=== PATIENT | female | born 1955 | race Caucasian/White ===

== ENCOUNTER 2016-09-12 08:00 | Outpatient (CLI) | payer MEDICAID | END 2016-09-12 08:01 | disposition home or self-care (01) | DX: N39.0 Urinary tract infection, site not specified (principal) ==

== ENCOUNTER 2016-12-19 08:51 | Outpatient (CLI) | payer MEDICAID | END 2016-12-19 08:52 | disposition home or self-care (01) | DX: E11.9 Type 2 diabetes mellitus without complications (principal) ==

== ENCOUNTER 2016-12-30 12:17 | Emergency (ER) | payer MEDICAID ==
[2016-12-30 12:23] VITALS: BP 140/84
== END 2016-12-30 13:45 | disposition left against medical advice (07) ==
LOC: ED 12:17
DX: Z53.21 Procedure and treatment not carried out due to patient leaving prior to being seen by health care provider (principal)

== ENCOUNTER 2017-02-07 21:27 | Emergency (ER) | payer MEDICAID ==
[2017-02-07 21:46] VITALS: BP 191/85
--- NOTE | 2017-02-07 22:29 | ED Physician Documentation ---
PD HPI HEADACHE - Stated complaint Stated Complaint: HBP - Chief complaint Chief Complaint: General - History obtained from History obtained from: Patient - History of Present Illness Timing - onset: How many days ago (BP has been high the past 4-5 days. Having mild pressure feeling in head today.) Timing - onset during: Light activity Timing - duration: Days (4-5) Timing - details: Gradual onset, Still present, Waxing and waning Worst headache ever?: No: Worst headache ever? Location: Front Quality: Throbbing Associated symptoms: No: Fever, Stiff neck, Nausea, Vomiting, Eye pain, Vision changes Recently seen: Not recently seen (last seen in clinic PMD for general care and BP was low at the time, so had Lisinopril 40 mg stopped. Other meds the same. That was 2 months ago and BP good for awhile (140-150 systolic, now high the past 4-5 days.) Review of Systems Eyes: denies: Loss of vision, Decreased vision Nose: denies: Rhinorrhea / runny nose, Congestion Throat: denies: Sore throat Cardiac: denies: Chest pain / pressure, Palpitations, Pedal edema, Calf pain Respiratory: denies: Cough GI: denies: Nausea, Vomiting Neurologic: denies: Generalized weakness, Focal weakness, Numbness PD PAST MEDICAL HISTORY - Past Medical History Past Medical History: Yes Cardiovascular: Hypertension Respiratory: COPD, Pneumonia Neuro: None Endocrine/Autoimmune: Type 2 diabetes GI: GERD, Cirrhosis 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 : Kidney stones HEENT: Other Psych: Depression, Anxiety Musculoskeletal: Osteoarthritis Derm: Other - Past Surgical History Past Surgical History: Yes General: Gastric surgery, EGD /AIR TRAFFIC CONTROL SPECIALIST: Tubal ligation HEENT: Cataracts - Present Medications Home Medications: Ambulatory Orders Medication Instructions Recorded Confirmed FLUoxetine [PROzac] 80 mg PO DAILY 05/15/13 02/07/17 Gabapentin [Gralise] 900 mg PO TID 05/15/13 02/07/17 Metformin HCl [Metformin HCl ER] 2,000 mg PO BID 05/15/13 02/07/17 buPROPion [Wellbutrin Xl] 300 mg PO DAILY 05/15/13 02/07/17 Albuterol 2.5 mg INH Q4H PRN 07/27/13 02/07/17 Guanfacine HCl [Tenex] 2 mg ORAL DAILY 03/31/14 02/07/17 Lisinopril 20 mg PO DAILY #30 tablet 02/07/17 Propranolol [Inderal] 10 mg PO BID 02/07/17 02/07/17 - Allergies Allergies/Adverse Reactions: Allergies Allergy/AdvReac Type Severity Reaction Status Date / Time latex AdvReac Intermediate Hives Verified 12/12/14 11:22 - Social History Does the pt smoke?: No Smoking Status: Never smoker Does the pt drink ETOH?: No Does the pt have substance abuse?: No - Immunizations Immunizations are current?: Yes - POLST Patient has POLST: No PD ED PE NORMAL - Vitals Vital signs reviewed: Yes - General General: Alert and oriented X 3, No acute distress, Well developed/nourished - HEENT HEENT: Moist mucous membranes, Pharynx benign - Neck Neck: Supple, no meningeal sign, No adenopathy - Cardiac Cardiac: RRR, No murmur - Respiratory Respiratory: Clear bilaterally - Derm Derm: Normal color, Warm and dry - Extremities Extremities: No tenderness to palpate, Normal ROM s pain, No edema, No calf tenderness / cord - Neuro Neuro: Alert and oriented X 3, breaker table worker 2-12 intact, No motor deficit, No sensory deficit, Normal speech, Other Results - Vitals Vitals: Oxygen O2 Source Room air PD MEDICAL DECISION MAKING - ED course Complexity details: considered differential (she had been on Lisinipril 40 mg and was taken off due to BP okay/low. Now is high, so can resume it at medium dose. ), d/w patient Departure - Departure Disposition: 01 Home, Self Care Clinical Impression: Mild headache Hypertension Qualifiers: Hypertension type: unspecified secondary hypertension Qualified Code(s): I15.9 - Secondary hypertension, unspecified Condition: Stable Record reviewed to determine appropriate education?: Yes Instructions: ED HTN Established Follow-Up: Pasquale Abreu MD [Primary Care Provider] - Prescriptions: Lisinopril 20 mg PO DAILY #30 tablet Comments: Adequate hydration. Resume lisinopril at medium dose from what you had been on previously (take 20 mg daily). Ibuprofen 200-400 mg twice daily or Aleve 220- 440 mg (1-2 tabs) twice daily for headaches short term. See how your blood pressure does over the next several days. Follow up next week with PMD as planned. Continue other medications as usual. Discharge Date/Time: 02/07/17 22:59
[2017-02-07] MEDS ORDERED: diazePAM 5 MG TABLET PO STA (22:49)
[2017-02-07] MEDS ORDERED: LISINOPRIL 5 MG TABLET PO STA (22:49)
[2017-02-07] MEDS ORDERED: NAPROXEN 250 MG TABLET PO STA (22:50)
[2017-02-07] MEDS ORDERED: diazePAM 5 MG TABLET PO ONE (22:53)
[2017-02-07] MEDS ORDERED: NAPROXEN 250 MG TABLET PO ONE (22:53)
[2017-02-07] MEDS ORDERED: LISINOPRIL 5 MG TABLET ONE (22:53)
== END 2017-02-07 22:59 | disposition home or self-care (01) ==
LOC: ED 21:27
DX: I10 Essential (primary) hypertension (principal); E11.9 Type 2 diabetes mellitus without complications; Z79.84 Long term (current) use of oral hypoglycemic drugs
CPT/HCPCS: 99283; A9270

== ENCOUNTER 2017-02-14 12:48 | Emergency (ER) | payer MEDICAID ==
--- NOTE | 2017-02-14 13:18 | ED Physician Documentation ---
PD HPI ABD PAIN - Stated complaint Stated Complaint: ABD PAIN - Chief complaint Chief Complaint: Abd Pain - History obtained from History obtained from: Patient - History of Present Illness Timing - onset: How many days ago (2) Timing - duration: Days (2) Timing - details: Abrupt onset, Still present (worse the past few hours), Waxing and waning Quality: Aching, Sharp, Pain Location: LLQ Radiation: Left flank Improved by: No: Eating, Position Worsened by: No: Eating, Moving, Breathing, Palpation Associated symptoms: Nausea, Hematuria. No: Fever, Vomiting, Diarrhea, Dysuria , Near syncope / syncope, Vaginal bleeding, Vaginal dc Similar symptoms before: Diagnosis (kidney stones, with large staghorn one left currently, due to see Dr. Melara, Urology in [facility] on the 27 of February about lithotripsy or surgery.) Recently seen: Not recently seen Review of Systems Constitutional: denies: Fever, Chills Nose: denies: Rhinorrhea / runny nose, Congestion Throat: denies: Sore throat Cardiac: denies: Chest pain / pressure Respiratory: denies: Dyspnea, Cough, Wheezing GI: reports: Abdominal Pain, Nausea. denies: Vomiting, Diarrhea : reports: Vaginal bleeding. 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 : Kidney stones HEENT: Other Psych: Depression, Anxiety Musculoskeletal: Osteoarthritis Derm: Other - Past Surgical History Past Surgical History: Yes General: Gastric surgery, EGD /EPOXY FABRICATION SUPERVISOR: Tubal ligation HEENT: Cataracts - Present Medications Home Medications: Ambulatory Orders Medication Instructions Recorded Confirmed FLUoxetine [PROzac] 80 mg PO DAILY 05/15/13 02/14/17 Gabapentin [Gralise] 900 mg PO TID 05/15/13 02/14/17 Metformin HCl [Metformin HCl ER] 2,000 mg PO BID 05/15/13 02/14/17 buPROPion [Wellbutrin Xl] 300 mg PO DAILY 05/15/13 02/14/17 Albuterol 2.5 mg INH Q4H PRN 07/27/13 02/14/17 Guanfacine HCl [Tenex] 2 mg ORAL DAILY 03/31/14 02/14/17 Lisinopril 20 mg PO DAILY #30 tablet 02/07/17 02/14/17 Propranolol [Inderal] 10 mg PO BID 02/07/17 02/14/17 Naproxen 375 mg PO BID #20 tablet 02/14/17 Ondansetron Odt [Zofran] 4 mg TL Q6H PRN #15 tablet 02/14/17 oxyCODONE [Roxicodone] 5 mg PO Q4-6H PRN #30 tablet 02/14/17 - Allergies Allergies/Adverse Reactions: Allergies Allergy/AdvReac Type Severity Reaction Status Date / Time latex AdvReac Intermediate Hives Verified 12/12/14 11:22 - Social History Does the pt smoke?: No Smoking Status: Former smoker Does the pt drink ETOH?: No Does the pt have substance abuse?: No - Immunizations Immunizations are current?: Yes - POLST Patient has POLST: No PD ED PE NORMAL - Vitals Vital signs reviewed: Yes - General General: Alert and oriented X 3, Well developed/nourished, Other (appears in significant pain) - Cardiac Cardiac: RRR, No murmur - Respiratory Respiratory: Clear bilaterally - Abdomen Abdomen: Normal bowel sounds, Soft, Non distended, No organomegaly, Other - Female Female : Deferred - Rectal Rectal: Deferred - Back Back: No spinal TTP, Other (left CVA tender) - Derm Derm: Normal color, Warm and dry, No rash - Neuro Neuro: Alert and oriented X 3, No motor deficit, No sensory deficit, Normal speech Results - Vitals Vitals: Oxygen O2 Source Room air - Labs Labs: Laboratory Tests 02/14/17 02/14/17 13:27 13:27 WBC 7.8 RBC 4.34 Hgb 13.4 Hct 38.6 MCV 88.9 MCH 30.9 MCHC 34.8 RDW 13.6 Plt Count 171 MPV 8.1 Neut # 5.3 Lymph # 1.8 [place] # 0.6 Eos # 0.1 Baso # 0.0 Absolute Nucleated RBC 0.00 Nucleated RBCs 0.0 Sodium 139 Potassium 4.3 Chloride 99 L Carbon Dioxide 31 Anion Gap 9.0 BUN 14 Creatinine 0.7 Estimated GFR (MDRD) 85 L Glucose 94 Calcium 9.8 Total Bilirubin 0.6 AST 24 ALT 27 Alkaline Phosphatase 63 Total Protein 7.9 Albumin 4.3 Globulin 3.6 Albumin/Globulin Ratio 1.2 Lipase 35 PD MEDICAL DECISION MAKING - ED course Complexity details: reviewed results, re-evaluated patient (much more comfortable with meds), considered differential, d/w patient, d/w customer care consultant ( [place], Urology) Departure - Departure Disposition: 01 Home, Self Care Clinical Impression: Ureterolithiasis, Left sided abdominal pain Condition: Stable Record reviewed to determine appropriate education?: Yes Instructions: ED Stone Renal W Colic Follow-Up: Pasquale Abreu MD [Primary Care Provider] - Shantell Melara MD [Physician No Access] - Prescriptions: Naproxen 375 mg PO BID #20 tablet oxyCODONE [Roxicodone] 5 mg PO Q4-6H PRN #30 tablet PRN Reason: Pain Ondansetron Odt [Zofran] 4 mg TL Q6H PRN #15 tablet PRN Reason: Nausea / Vomiting Comments: Adequate fluids. Naproxen lower dose twice daily for the next several days. Zofran as needed for nausea. Oxycodone 1-2 every 4-6 hours as needed for pains. Call Dr. Melara's office today for follow up appt. They have not called back as yet, but I assume they will be wanting to see you in office in the next day or two. Discharge Date/Time: 02/14/17 15:11
[2017-02-14] MEDS ORDERED: ONDANSETRON 4 MG/2 ML VIAL IVP STA (13:23)
[2017-02-14] MEDS ORDERED: SODIUM CHLORIDE 0.9% 1,000 ML IV ONE (13:23)
[2017-02-14] MEDS ORDERED: HYDROmorphone 1 MG/ML SYRINGE IVP STA ×2 (13:23→14:23)
[2017-02-14] MEDS ORDERED: KETOROLAC 60 MG/2 ML VIAL IVP STA (13:23)
[2017-02-14] MEDS ORDERED: ONDANSETRON 4 MG/2 ML VIAL ONE (13:29)
[2017-02-14] MEDS ORDERED: KETOROLAC 30 MG/ML VIAL ONE (13:29)
[2017-02-14] MEDS ORDERED: HYDROmorphone 1 MG/ML SYRINGE ONE ×2 (13:29→14:27)
[2017-02-14 13:47] LABS: BASOPHILS % (AUTO) 0.5 %; EOSINOPHILS # (AUTO) 0.1 10^3/uL (0.0-0.7); EOSINOPHILS % (AUTO) 1.4 %; HCT - HEMATOCRIT 38.6 % (37.0-47.0); HGB - HEMOGLOBIN 13.4 g/dL (12.0-16.0); LYMPHOCYTES # (AUTO) 1.8 10^3/uL (1.5-3.5); LYMPHOCYTES % (AUTO) 22.6 %; MEAN CORPUSCULAR HEMOGLOBIN 30.9 pg (27.0-31.0); MEAN CORPUSCULAR HGB CONC 34.8 g/dL (32.0-36.0); MEAN CORPUSCULAR VOLUME 88.9 fL (81.0-99.0); MEAN PLATELET VOLUME 8.1 fL (7.9-10.8); MONOCYTES # (AUTO) 0.6 10^3/uL (0.0-1.0); MONOCYTES % (AUTO) 8.2 %; NEUTROPHILS # (AUTO) 5.3 10^3/uL (1.5-6.6); NEUTROPHILS % (AUTO) 67.3 %; RED BLOOD COUNT 4.34 10^6/uL (4.20-5.40); RED CELL DISTRIBUTION WIDTH 13.6 % (12.0-15.0); UNCORRECTED WHITE BLOOD COUNT 7.8 x10^3/uL; WHITE BLOOD COUNT 7.8 x10^3/uL (4.8-10.8)
[2017-02-14 14:04] LABS: ALBUMIN/GLOBULIN RATIO 1.2 (1.0-2.2); BILIRUBIN,TOTAL 0.6 mg/dL (0.2-1.0); CALCIUM 9.8 mg/dL (8.5-10.3); CREATININE 0.7 mg/dL (0.4-1.0); POTASSIUM 4.3 mmol/L (3.5-5.0); TOTAL PROTEIN 7.9 g/dL (6.7-8.2)
--- NOTE | 2017-02-14 14:21 | CT Preliminary Report ---
Exam: CT KUB IMPRESSION: 1. One of the 2 previously demonstrated staghorn stones in the lower pole of the left kidney has drop ped down to the left ureter and lodged at L4-L5 level measuring 12 mm in length, 7 mm in diameter cau sing moderate left hydronephrosis and hydroureter and mild perinephric fat stranding. 2. The other staghorn stone is still in the lower pole measuring 19 mm in length and 10 mm in diamete r. 3. A small 1.2 cm low-attenuation focus in the upper pole of the right kidney consistent with a renal cyst, showing no significant interval change. 4. Cirrhotic liver. [facility] SITE ID: [id number]
--- NOTE | 2017-02-14 14:24 | CT Report ---
EXAM: CT ABDOMEN AND PELVIS (CT KUB) EXAM DATE: 02/14/2017 01:50 PM. CLINICAL HISTORY: Left abd/flank pain for 2 days; h/o stones. COMPARISONS: CT ABDOMEN AND PELVIS WITHOUT CONTRAST 02/07/2015. TECHNIQUE: Routine axial helical CT imaging was performed through the abdomen and pelvis without IV c ontrast. Reconstructions: Coronal and sagittal. In accordance with CT protocol optimization, one or more of the following dose reduction techniques w ere utilized for this exam: automated exposure control, adjustment of mA and/or KV based on patient s ize, or use of iterative reconstructive technique. FINDINGS: Lung Bases: Unremarkable. Right Kidney/Ureter: No opaque stones, hydronephrosis, or hydroureter. No perinephric fat stranding. A small 1.2 cm low-attenuation focus in the upper pole consistent with a renal cyst, showing no signi ficant interval change. Left Kidney/Ureter: One of the 2 previously demonstrated staghorn stones in the lower pole of the lef t kidney has dropped down to the left ureter and lodged at L4-L5 level measuring 12 mm in length, 7 m m in diameter causing moderate left hydronephrosis and hydroureter. The other staghorn stone is still in the lower pole measuring 19 mm in length and 10 mm in diameter. Mild perinephric fat stranding. Other Solid Organs: Cirrhotic liver with nodular contour. Noncontrast images of the other solid organ s are grossly unremarkable. Gallbladder/Bile Ducts: Unremarkable. Peritoneal Cavity: No free fluid, free air or rufus adenopathy. Bowel is grossly unremarkable. The ap pendix is small and normal. No diverticulitis or colitis. Pelvic Organs: No bladder stones or wall thickening. Noncontrast images of the visualized pelvic orga ns are unremarkable. Vasculature: Unremarkable. Other: None. IMPRESSION: 1. One of the 2 previously demonstrated staghorn stones in the lower pole of the left kidney has drop ped down to the left ureter and lodged at L4-L5 level measuring 12 mm in length, 7 mm in diameter cau sing moderate left hydronephrosis and hydroureter and mild perinephric fat stranding. 2. The other staghorn stone is still in the lower pole measuring 19 mm in length and 10 mm in diamete r. 3. A small 1.2 cm low-attenuation focus in the upper pole of the right kidney consistent with a renal cyst, showing no significant interval change. 4. Cirrhotic liver. [facility] Referring Provider Line: [phone] SITE ID: [id number]
[2017-02-14 14:33] VITALS: BP 181/91
== END 2017-02-14 15:11 | disposition home or self-care (01) ==
LOC: ED 12:48
DX: N20.1 Calculus of ureter (principal); I10 Essential (primary) hypertension; E11.9 Type 2 diabetes mellitus without complications; Z87.891 Personal history of nicotine dependence
CPT/HCPCS: 36415; 74176; 80053; 83690; 85025; 96374; 96375; 96376; 99283; 99284; J1170

== ENCOUNTER 2017-02-27 10:48 | Inpatient (IN) | payer MEDICAID ==
[2017-02-27 11:52] LABS: BASOPHILS # (AUTO) 0.1 10^3/uL (0.0-0.1); EOSINOPHILS # (AUTO) 0.2 10^3/uL (0.0-0.7); EOSINOPHILS % (AUTO) 2.2 %; HCT - HEMATOCRIT 31.7 % (37.0-47.0); HGB - HEMOGLOBIN 10.8 g/dL (12.0-16.0); LYMPHOCYTES # (AUTO) 1.9 10^3/uL (1.5-3.5); LYMPHOCYTES % (AUTO) 22.2 %; MEAN CORPUSCULAR HEMOGLOBIN 29.6 pg (27.0-31.0); MEAN CORPUSCULAR HGB CONC 34.1 g/dL (32.0-36.0); MEAN CORPUSCULAR VOLUME 86.9 fL (81.0-99.0); MONOCYTES # (AUTO) 0.4 10^3/uL (0.0-1.0); MONOCYTES % (AUTO) 4.3 %; NEUTROPHILS % (AUTO) 70.3 %; RED BLOOD COUNT 3.65 10^6/uL (4.20-5.40); RED CELL DISTRIBUTION WIDTH 13.2 % (12.0-15.0); UNCORRECTED WHITE BLOOD COUNT 8.5 x10^3/uL; WHITE BLOOD COUNT 8.5 x10^3/uL (4.8-10.8)
[2017-02-27 11:59] LABS: INR 1.1 (0.8-1.2); PT - PROTHROMBIN TIME 12.5 secs (9.9-12.6)
[2017-02-27 12:06] LABS: ALBUMIN/GLOBULIN RATIO 0.9 (1.0-2.2); BILIRUBIN,TOTAL 0.3 mg/dL (0.2-1.0); CALCIUM 9.4 mg/dL (8.5-10.3); CREATININE 0.8 mg/dL (0.4-1.0); POTASSIUM 3.9 mmol/L (3.5-5.0); TOTAL PROTEIN 7.2 g/dL (6.7-8.2)
[2017-02-27 12:14] LABS: PARTIAL THROMBOPLASTIN TIME 31.2 secs (24.9-33.3)
[2017-02-27] MEDS ORDERED: FAMOTIDINE 20 MG/50 ML 50 ML IV ONE ×2 (12:40→12:56)
--- NOTE | 2017-02-27 12:48 | ED Physician Documentation ---
History of Present Illness - Stated complaint Stated Complaint: BLOOD IN STOOL - Chief complaint Chief Complaint: Abd Pain - Additonal information Additional information: hx from pt 61 female pmhx HTN COPD DM and kidney stones seen in our ED 02/14 for renal colic, had a staghorn L ureteral, txed with oxycodone naproxen and zofran then saw urology and had a stent placed has had abd pain - but presumed 2/2 stone and then stent 2 days of maroon colored stools, no CP no SOA not faint, no vomiting blood Review of Systems Constitutional: denies: Fever, Chills Throat: denies: Sore throat Cardiac: denies: Chest pain / pressure GI: reports: Abdominal Pain, Bloody / black stool. 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 : Kidney stones HEENT: Other Psych: Depression, Anxiety Musculoskeletal: Osteoarthritis Derm: Other - Past Surgical History Past Surgical History: Yes General: Gastric surgery, EGD /WOOD TURNER: Tubal ligation HEENT: Cataracts - Present Medications Home Medications: Ambulatory Orders Medication Instructions Recorded Confirmed FLUoxetine [PROzac] 80 mg PO DAILY 05/15/13 02/14/17 Gabapentin [Gralise] 900 mg PO TID 05/15/13 02/14/17 Metformin HCl [Metformin HCl ER] 2,000 mg PO BID 05/15/13 02/14/17 buPROPion [Wellbutrin Xl] 300 mg PO DAILY 05/15/13 02/14/17 Albuterol 2.5 mg INH Q4H PRN 07/27/13 02/14/17 Guanfacine HCl [Tenex] 2 mg ORAL DAILY 03/31/14 02/14/17 Lisinopril 20 mg PO DAILY #30 tablet 02/07/17 02/14/17 Propranolol [Inderal] 10 mg PO BID 02/07/17 02/14/17 Naproxen 375 mg PO BID #20 tablet 02/14/17 Ondansetron Odt [Zofran] 4 mg TL Q6H PRN #15 tablet 02/14/17 oxyCODONE [Roxicodone] 5 mg PO Q4-6H PRN #30 tablet 02/14/17 - Allergies Allergies/Adverse Reactions: Allergies Allergy/AdvReac Type Severity Reaction Status Date / Time latex AdvReac Intermediate Hives Verified 12/12/14 11:22 - Social History Does the pt smoke?: No Smoking Status: Former smoker Does the pt drink ETOH?: No Does the pt have substance abuse?: No - Immunizations Immunizations are current?: Yes - POLST Patient has POLST: No PD ED PE NORMAL - Vitals Vital signs reviewed: Yes - General General: Alert and oriented X 3 - HEENT HEENT: PERRL - Neck Neck: Supple, no meningeal sign - Cardiac Cardiac: RRR - Respiratory Respiratory: No respiratory distress, Clear bilaterally - Abdomen Abdomen: Soft, Other (mild diffuse TTP) - Rectal Rectal: Other (no mass fissure or hemorrhoiuds, dark maroon strongly heme + stool) - Derm Derm: Other (pale) Results - Vitals Vitals: Vital Signs - 24 hr 02/27/17 02/27/17 10:54 13:00 Temperature 36.6 C Heart Rate 86 63 Respiratory 18 20 Rate Blood Pressure 133/62 H 151/86 H O2 Saturation 98 100 Oxygen O2 Source Room air - Labs Labs: Laboratory Tests 02/27/17 02/27/17 02/27/17 11:44 11:44 11:44 WBC 8.5 RBC 3.65 L Hgb 10.8 L Hct 31.7 L MCV 86.9 MCH 29.6 MCHC 34.1 RDW 13.2 Plt Count 286 MPV 7.0 L Neut # 6.0 Lymph # 1.9 [place] # 0.4 Eos # 0.2 Baso # 0.1 Absolute Nucleated RBC 0.00 Nucleated RBCs 0.0 PT 12.5 INR 1.1 APTT 31.2 Sodium 135 Potassium 3.9 Chloride 100 L Carbon Dioxide 21 Anion Gap 14.0 H BUN 18 Creatinine 0.8 Estimated GFR (MDRD) 73 L Glucose 170 H Calcium 9.4 Total Bilirubin 0.3 AST 31 ALT 28 Alkaline Phosphatase 79 Total Protein 7.2 Albumin 3.4 Globulin 3.8 Albumin/Globulin Ratio 0.9 L Lipase 32 PD MEDICAL DECISION MAKING - ED course ED course: hemodynamically stable, Hgb dropped from 13.4 on 02/14 to 10.8 likely 2/2 NSAIDS - gave pepcid CT 02/14 for stones also showed cirrhosis, pt states hx Hep C txed and neg tests X 3 now, had scope at [facility] 5 yr ago s varices, NN state hx gastric surgery but when questioned she states it was an EGD hospitalist will admit, i spoke to surgery re consult Departure - Departure Disposition: 66 [facility] DC/Xfer Clinical Impression: GI bleed Qualifiers: GI bleed type/associated pathology: melena Qualified Code(s): K92.1 - Melena
[2017-02-27] MEDS ORDERED: ZOLPIDEM 5 MG TABLET PO PRN (13:40)
[2017-02-27] MEDS ORDERED: ACETAMINOPHEN 325 MG TABLET PO PRN (13:40)
[2017-02-27] MEDS ORDERED: ONDANSETRON 4 MG/2 ML VIAL IVP PRN (13:40)
[2017-02-27] MEDS ORDERED: SODIUM CHLORIDE FLUSH 0.9% 10 ML SYRINGE IVP PRN (13:40)
[2017-02-27] MEDS ORDERED: ALBUTEROL NEB 2.5 MG/3 ML INH PRN (13:54)
[2017-02-27 14:39] LABS: HEMOGLOBIN A1C 0.52 g/dL
[2017-02-27] MEDS: SODIUM CHLORIDE FLUSH 0.9% 10 ML SYRINGE IVP SCH ×2 (14:58→21:56)
[2017-02-27] MEDS: SODIUM CHLORIDE 0.9% 1,000 ML IV SCH ×2 (14:58→23:54)
[2017-02-27] MEDS: GABAPENTIN 300 MG CAPSULE PO SCH ×2 (15:30→21:57)
[2017-02-27] MEDS: PANTOPRAZOLE 40 MG VIAL IVP SCH (15:30)
--- NOTE | 2017-02-27 17:45 | HISTORY & PHYSICAL EXAMINATION ---
Chief Complaint - Chief Complaint Chief Complaint: GI bleeding History of Present Illness - History Obtained From History obtained from: patient - History of Present Illness HPI Comment/Other: This is a 58-year-old female with a past medical significant history of COPD, diabetes, hypertension, history of recurrent kidney stones, status post of stent placement with nephrostomy tube, drug abuse, and HepC, who present emergence department with a chief complaint of melena. Patient state she noticed maroon as well black stool for about four days. She report because of pain of recurrent nephrolithiasis, she took Naprosyn for about 7 times, plus oxycodone and Zofran as well. She report she had history HepC, but virus is undetectable after treated by her GI physician. She report she had stage 4 liver cirrhosis but she was never told she had esophagus varices. She report she had colonoscope done about 6 years ago. She was reported it was benign. She state she never had EGD done before. She denies short of breathing, abdominal pain, chest pain, syncope, nausea, vomiting, hematemesis, hemoptysis, hematuria. Patient had HGB 13.4 at 02/14/17, today patient's HGB 10.8. Patient's vital signs and other blood workup are unremarkable at this point. Patient is admitted for GI bleeding, planed to do EGD, and will consult with surgeon. Review of Systems - Gastrointestinal Gastrointestinal: reports: Black stools - Psychiatric Psychiatric: reports: Anxiety History - Past Medical History Cardiovascular: reports: Hypertension Respiratory: reports: COPD, Pneumonia Neuro: reports: None Endocrine/Autoimmune: reports: Type 2 diabetes GI: reports: GERD, Cirrhosis CARPENTER ROUGH: reports: None : reports: Kidney stones HEENT: reports: Other Psych: reports: Depression, Anxiety Musculoskeletal: reports: Osteoarthritis Derm: reports: Other MRSA Hx?: Yes Other Past Medical History: dentures top and bottom- only wears top - Past Surgical History General: reports: Gastric surgery, EGD /CARPENTER ROUGH: reports: Tubal ligation HEENT: reports: Cataracts - POLST Patient has POLST: No Meds/Allgy - Home Medications Home Medications: Ambulatory Orders Medication Instructions Recorded Confirmed FLUoxetine [PROzac] 40 mg PO DAILY 05/15/13 02/27/17 buPROPion [Wellbutrin Xl] 300 mg PO DAILY 05/15/13 02/27/17 Guanfacine HCl [Tenex] 2 mg ORAL QPM 03/31/14 02/27/17 Propranolol [Inderal] 10 mg PO BID 02/07/17 02/27/17 Naproxen 375 mg PO BID #20 tablet 02/14/17 02/27/17 Ondansetron Odt [Zofran] 4 mg TL Q6H PRN #15 tablet 02/14/17 02/27/17 oxyCODONE [Roxicodone] 5 mg PO Q4-6H PRN #30 tablet 02/14/17 02/27/17 Albuterol Sulfate [Proair Hfa 2 puffs INH Q4H PRN 02/27/17 02/27/17 Inhaler] Gabapentin [Neurontin] 900 mg PO TID 02/27/17 02/27/17 Lisinopril [Prinivil] 10 mg PO DAILY 02/27/17 02/27/17 Metformin HCl [Glucophage] 1,000 mg PO BID 02/27/17 02/27/17 - Allergies Allergies/Adverse Reactions: Allergies Allergy/AdvReac Type Severity Reaction Status Date / Time latex AdvReac Intermediate Hives Verified 12/12/14 11:22 Exam - Vital Signs Vital Signs: Vital Signs x48h Temp Pulse Pulse Pulse Resp BP Pulse Ox 02/27/17 17:00 58 L 20 02/27/17 16:15 36.8 C 71 20 140/74 H 97 02/27/17 14:00 36.6 C 62 17 180/84 H 95 - Physical Exam General Appearance: positive: No acute distress, Alert Eyes Bilateral: positive: Normal inspection, PERRL ENT: positive: ENT inspection nml, Pharynx nml, No signs of dehydration Neck: positive: Nml inspection, Thyroid nml, No JVD, Trachea midline Respiratory: positive: Chest non-tender, No respiratory distress, Breath sounds nml Cardiovascular: positive: Regular rate & rhythm, No murmur, No gallop Peripheral Pulses: positive: 2+ Abdomen: positive: Non-tender, No organomegaly, Nml bowel sounds, No distention Back: positive: Nml inspection Skin: positive: Color nml, No rash, Warm, Dry Extremities: positive: Non-tender, Full ROM, Nml appearance Neurologic/Psychiatric: positive: Oriented x3, CN's nml (2-12), Motor nml, Sensation nml, Mood/affect nml Conclusion/Plan - Problem List (1) GI bleed Conclusion/Plan: consult and call with surgeon NPO after midnight IVF Qualifiers: GI bleed type/associated pathology: melena Qualified Code(s): K92.1 - Melena (2) Diabetes type 2, controlled Conclusion/Plan: reconciliation of home meds slide scale as needed for insulin hypoglycemia protocol (3) Hypertension Conclusion/Plan: stable, reconciliation of home meds Qualifiers: Hypertension type: unspecified secondary hypertension Qualified Code(s): I15.9 - Secondary hypertension, unspecified; I15 - Secondary hypertension (4) Nephrolithiasis Conclusion/Plan: patient's pain is good controlled, reconciliation of home pain medications (5) Anxiety Conclusion/Plan: patient report she still has anxiety after reconciliation of home meds, add Ativan PRN DVT prophylaxis : SCD, will have EGD on tomorrow. - Lab Results Fish Bones: 02/28/17 07:38 02/28/17 07:38 Issues/Core Measures - Anticipated LOS Anticipated Stay Length: 2 or more midnights
[2017-02-27] MEDS: LORazepam 2 MG/ML SYRINGE IVP PRN (18:26)
[2017-02-27] MEDS: INSULIN ASPART 300 UNIT/3 ML PEN SUBQ SCH ×2 (18:28→21:54)
[2017-02-27] MEDS: PROPRANOLOL 10 MG TABLET PO SCH (21:53)
[2017-02-28] MEDS: LORazepam 2 MG/ML SYRINGE IVP PRN ×3 (00:06→15:01)
--- NOTE | 2017-02-28 05:47 | HISTORY & PHYSICAL EXAMINATION ---
DATE OF ADMISSION: 02/27/2017 I am called in consultation by ZACHARIAH Sewell to evaluate this very pleasant 61-year-old female for an upper GI bleed. The patient was admitted to the hospital from the emergency department today arou nd noon. She had blood in her stool. She has an extensive past medical history, which includes hypert ension, COPD, diabetes mellitus, and nephrolithiasis with pain for which she was started on oxycodone , Naprosyn, and Zofran. She has been taking the Naprosyn for quite some time and noted some maroon as well as black stools. She denies any nausea, vomiting or hematemesis. She has been scoped in the pas t, both upper and lower scopes. The last time she had a lower scope was approximately 5 years ago. Jessica mariano does not have any difficulty swallowing, speaking or breathing. MEDICATIONS 1. Prozac 80 mg p.o. daily. 2. Gabapentin 900 mg p.o. t.i.d. 3. Metformin 2000 mg p.o. b.i.d. 4. Wellbutrin XL 300 mg p.o. daily. 5. Albuterol 2.5 mg inhaled q.4h. as needed. 6. Tenex 2 mg orally daily. 7. Lisinopril 20 mg p.o. daily. 8. Inderal 10 mg p.o. b.i.d. 9. Naprosyn 375 mg p.o. b.i.d. 10. Zofran 4 mg q.6h. as needed for nausea or vomiting. 11. Roxicodone 5 mg p.o. q.4-6h. as needed for pain. ALLERGIES: LATEX, RESULTS IN HIVES. PAST MEDICAL AND SURGICAL HISTORY 1. Hypertension. 2. COPD. 3. Pneumonia. 4. Type 2 diabetes. 5. GERD. 6. Cirrhosis. 7. Nephrolithiasis. 8. Anxiety. 9. Depression. 10. Osteoarthritis. 11. Gastric surgery. 12. EGD. 13. Tubal ligation. 14. Cataract operation. SOCIAL HISTORY: She is a former smoker. Denies current alcohol or substance abuse. PHYSICAL EXAMINATION: Please note the patient was examined in Room 17 at [facility] med/surg unit. GENERAL: She is a 61-year-old female who appears older than her stated age. She is alert and oriented to person, place, and time. She asks and answers questions appropriately. VITALS: Please refer to nurse's notes. HEENT: Normocephalic, atraumatic. Sclerae noninjected, nonicteric. Mucous membranes are pink and dry. NECK: Supple without mass or bruit. HEART: Regular rate and rhythm without rub, murmur or gallop. LUNGS: Clear to auscultation bilaterally. ABDOMEN: Slightly protuberant but soft with positive bowel sounds. There are no peritoneal findings. EXTREMITIES: No clubbing, cyanosis or edema. GAIT: Not evaluated. LABS: On her CBC the values are not normal including a RBC of 3.65, hemoglobin 10.8, hematocrit 31.7, MPV 7. Her coagulation profile is entirely normal. Abnormalities on her CMP include chloride of 100, anion gap 14, and glucose 170, as well as dgidtfc-cr-beebmjij ratio of 0.9. ASSESSMENT: A 61-year-old female with a history of cirrhosis who was taking nonsteroidal anti-inflamm atory drugs, who has noted maroon/bloody stools accompanied by a drop in her hemoglobin. PLAN: Esophagogastroduodenoscopy with possible biopsies and/or polypectomies. The indication for proc edure, alternatives, and possible complications including, but not limited to, perforation requiring operative repair, bleeding with all of its risks including transfusion, and were fully explaine d to the patient and all questions were answered. I also discussed not even doing the procedure at al , just in order to be complete. The patient indicated that she wished to proceed with this procedure . She asked whether or not a colonoscopy would also be done, and I explained that first off we would do the EGD to ensure that she does not have an upper source for her bleeding as it is the most likely source. If this is negative, then she could proceed at a later date for colonoscopy. Verbal and writ ten consent was obtained. The tentative time to do the patient's procedure will be tomorrow afternoon , after Dr. Engel is done with her day and I am done with clinic. JOB #: [id number] EXT JOB #:[id number]
[2017-02-28] MEDS: PANTOPRAZOLE 40 MG VIAL IVP SCH ×2 (06:16→18:24)
[2017-02-28] MEDS: GABAPENTIN 300 MG CAPSULE PO SCH ×3 (06:16→22:05)
[2017-02-28] MEDS ORDERED: hydrALAZINE INJ 20 MG/ML VIAL IVP PRN (07:26)
[2017-02-28 07:45] LABS: BASOPHILS # (AUTO) 0.1 10^3/uL (0.0-0.1); EOSINOPHILS # (AUTO) 0.2 10^3/uL (0.0-0.7); EOSINOPHILS % (AUTO) 2.1 %; HCT - HEMATOCRIT 29.5 % (37.0-47.0); HGB - HEMOGLOBIN 10.1 g/dL (12.0-16.0); LYMPHOCYTES # (AUTO) 2.1 10^3/uL (1.5-3.5); LYMPHOCYTES % (AUTO) 27.3 %; MEAN CORPUSCULAR HEMOGLOBIN 29.7 pg (27.0-31.0); MEAN CORPUSCULAR HGB CONC 34.2 g/dL (32.0-36.0); MEAN PLATELET VOLUME 7.2 fL (7.9-10.8); MONOCYTES # (AUTO) 0.4 10^3/uL (0.0-1.0); MONOCYTES % (AUTO) 5.1 %; NEUTROPHILS % (AUTO) 64.5 %; RED BLOOD COUNT 3.39 10^6/uL (4.20-5.40); RED CELL DISTRIBUTION WIDTH 13.4 % (12.0-15.0); UNCORRECTED WHITE BLOOD COUNT 7.7 x10^3/uL; WHITE BLOOD COUNT 7.7 x10^3/uL (4.8-10.8)
[2017-02-28 07:57] LABS: BILIRUBIN,TOTAL 0.3 mg/dL (0.2-1.0); CALCIUM 8.4 mg/dL (8.5-10.3); CREATININE 0.8 mg/dL (0.4-1.0); MAGNESIUM 1.5 mg/dL (1.7-2.8); POTASSIUM 3.8 mmol/L (3.5-5.0); TOTAL PROTEIN 6.7 g/dL (6.7-8.2)
[2017-02-28] MEDS: SODIUM CHLORIDE FLUSH 0.9% 10 ML SYRINGE IVP SCH ×3 (08:24→22:07)
[2017-02-28] MEDS: INSULIN ASPART 300 UNIT/3 ML PEN SUBQ SCH ×4 (09:28→22:06)
[2017-02-28] MEDS: PROPRANOLOL 10 MG TABLET PO SCH ×2 (09:38→22:06)
[2017-02-28] MEDS: buPROPion XL 150 MG TABLET PO SCH (09:38)
[2017-02-28] MEDS: FLUoxetine 10 MG CAPSULE PO SCH (09:39)
[2017-02-28] MEDS: LISINOPRIL 5 MG TABLET PO SCH (09:39)
[2017-02-28] MEDS: GUANFACINE HCL 2 MG PO SCH (09:39)
[2017-02-28] MEDS: POLYETHYLENE GLYCOL 3350 17 GM PACKET PO SCH (09:39)
[2017-02-28] MEDS: SODIUM CHLORIDE 0.9% 1,000 ML IV SCH ×2 (09:46→22:06)
[2017-02-28] MEDS ORDERED: LIDO GARGLE 30 ML BOTTLE PO ONE (17:11)
[2017-02-28] MEDS ORDERED: LACTATED RINGERS 1,000 ML IV ONE ×2 (17:40→17:44)
[2017-02-28] MEDS ORDERED: MIDAZOLAM 2 MG/2 ML VIAL IVP ONE (18:00)
[2017-02-28] MEDS ORDERED: KETAMINE 500 MG/10 ML VIAL IVP ONE (18:00)
[2017-02-28] MEDS ORDERED: GLYCOPYRROLATE 1 MG/5 ML VIAL IVP ONE (18:00)
--- NOTE | 2017-02-28 19:51 | PROVIDER PROGRESS NOTE ---
Objective - Vital Signs/Intake & Output Vital Signs: Vital Signs x48h Temp Pulse Pulse Resp BP BP Pulse Ox 02/28/17 19:30 77 18 02/28/17 19:29 73 163/90 H 02/28/17 19:02 82 167/98 H 02/28/17 18:54 163/90 H 02/28/17 18:40 171/83 H 02/28/17 18:35 82 170/93 H 02/28/17 18:30 82 174/87 H 02/28/17 18:24 189/118 H 02/28/17 18:15 36.7 C 81 12 189/113 H 96 02/28/17 18:00 159/88 H 02/28/17 16:10 36.3 C L 63 20 164/72 H 96 Intake & Output: Intake & Output 02/25/17 02/26/17 02/27/17 02/28/17 23:59 23:59 23:59 23:59 Intake Total 1281 1507 Output Total 2150 Balance 1281 -643 - Lab Results Fish Bones: 02/28/17 07:38 02/28/17 07:38 Other Labs: Lab Results x24hrs 02/28/17 02/28/17 02/28/17 Range/Units 18:19 11:31 07:38 WBC (4.8-10.8) x10^3/uL RBC (4.20-5.40) 10^6/uL Hgb (12.0-16.0) g/dL Hct (37.0-47.0) % MCV (81.0-99.0) fL MCH (27.0-31.0) pg MCHC (32.0-36.0) g/dL RDW (12.0-15.0) % Plt Count (130-450) 10^3/uL MPV (7.9-10.8) fL Neut # (1.5-6.6) 10^3/uL Lymph # (1.5-3.5) 10^3/uL [place] # (0.0-1.0) 10^3/uL Eos # (0.0-0.7) 10^3/uL Baso # (0.0-0.1) 10^3/uL Absolute Nucleated RBC x10^3/uL Nucleated RBCs /100WBC Sodium 139 (135-145) mmol/L Potassium 3.8 (3.5-5.0) mmol/L Chloride 104 (101-111) mmol/L Carbon Dioxide 27 (21-32) mmol/L Anion Gap 8.0 (6-13) BUN 14 (6-20) mg/dL Creatinine 0.8 (0.4-1.0) mg/dL Estimated GFR (MDRD) 73 L (>89) Glucose 124 H (70-100) mg/dL POC Whole Bld Glucose 96 111 H (70 - 100) mg/dL Calcium 8.4 L (8.5-10.3) mg/dL Magnesium 1.5 L (1.7-2.8) mg/dL Total Bilirubin 0.3 (0.2-1.0) mg/dL AST 27 (10-42) IU/L ALT 24 (10-60) IU/L Alkaline Phosphatase 67 (42-121) IU/L Total Protein 6.7 (6.7-8.2) g/dL Albumin 3.3 (3.2-5.5) g/dL Globulin 3.4 (2.1-4.2) g/dL Albumin/Globulin Ratio 1.0 (1.0-2.2) 02/28/17 02/28/17 02/28/17 Range/Units 07:38 07:37 05:44 WBC 7.7 (4.8-10.8) x10^3/uL RBC 3.39 L (4.20-5.40) 10^6/uL Hgb 10.1 L (12.0-16.0) g/dL Hct 29.5 L (37.0-47.0) % MCV 87.0 (81.0-99.0) fL MCH 29.7 (27.0-31.0) pg MCHC 34.2 (32.0-36.0) g/dL RDW 13.4 (12.0-15.0) % Plt Count 243 (130-450) 10^3/uL MPV 7.2 L (7.9-10.8) fL Neut # 5.0 (1.5-6.6) 10^3/uL Lymph # 2.1 (1.5-3.5) 10^3/uL [place] # 0.4 (0.0-1.0) 10^3/uL Eos # 0.2 (0.0-0.7) 10^3/uL Baso # 0.1 (0.0-0.1) 10^3/uL Absolute Nucleated RBC 0.00 x10^3/uL Nucleated RBCs 0.0 /100WBC Sodium (135-145) mmol/L Potassium (3.5-5.0) mmol/L Chloride (101-111) mmol/L Carbon Dioxide (21-32) mmol/L Anion Gap (6-13) BUN (6-20) mg/dL Creatinine (0.4-1.0) mg/dL Estimated GFR (MDRD) (>89) Glucose (70-100) mg/dL POC Whole Bld Glucose 118 H 115 H (70 - 100) mg/dL Calcium (8.5-10.3) mg/dL Magnesium (1.7-2.8) mg/dL Total Bilirubin (0.2-1.0) mg/dL AST (10-42) IU/L ALT (10-60) IU/L Alkaline Phosphatase (42-121) IU/L Total Protein (6.7-8.2) g/dL Albumin (3.2-5.5) g/dL Globulin (2.1-4.2) g/dL Albumin/Globulin Ratio (1.0-2.2) Assessment/Plan - Problem List (1) GI bleed Qualifiers: GI bleed type/associated pathology: melena Qualified Code(s): K92.1 - Melena (3) Hypertension Qualifiers: Hypertension type: unspecified secondary hypertension Qualified Code(s): I15.9 - Secondary hypertension, unspecified; I15 - Secondary hypertension
[2017-03-01] MEDS: oxyCODONE 5 MG TABLET PO PRN ×2 (02:06→07:59)
[2017-03-01] MEDS: LORazepam 2 MG/ML SYRINGE IVP PRN (02:07)
[2017-03-01] MEDS: SODIUM CHLORIDE 0.9% 1,000 ML IV SCH (05:30)
[2017-03-01] MEDS: GABAPENTIN 300 MG CAPSULE PO SCH (05:30)
[2017-03-01] MEDS: PANTOPRAZOLE 40 MG VIAL IVP SCH (05:45)
[2017-03-01 05:52] LABS: BASOPHILS % (AUTO) 0.6 %; EOSINOPHILS # (AUTO) 0.1 10^3/uL (0.0-0.7); HCT - HEMATOCRIT 31.7 % (37.0-47.0); HGB - HEMOGLOBIN 10.9 g/dL (12.0-16.0); LYMPHOCYTES # (AUTO) 1.9 10^3/uL (1.5-3.5); LYMPHOCYTES % (AUTO) 28.4 %; MEAN CORPUSCULAR HEMOGLOBIN 30.2 pg (27.0-31.0); MEAN CORPUSCULAR HGB CONC 34.3 g/dL (32.0-36.0); MEAN CORPUSCULAR VOLUME 88.1 fL (81.0-99.0); MEAN PLATELET VOLUME 7.3 fL (7.9-10.8); MONOCYTES # (AUTO) 0.4 10^3/uL (0.0-1.0); MONOCYTES % (AUTO) 5.5 %; NEUTROPHILS # (AUTO) 4.3 10^3/uL (1.5-6.6); NEUTROPHILS % (AUTO) 63.5 %; RED CELL DISTRIBUTION WIDTH 13.4 % (12.0-15.0); UNCORRECTED WHITE BLOOD COUNT 6.8 x10^3/uL; WHITE BLOOD COUNT 6.8 x10^3/uL (4.8-10.8)
[2017-03-01 06:03] LABS: ALBUMIN/GLOBULIN RATIO 0.9 (1.0-2.2); BILIRUBIN,TOTAL 0.4 mg/dL (0.2-1.0); CALCIUM 8.8 mg/dL (8.5-10.3); CREATININE 0.7 mg/dL (0.4-1.0); POTASSIUM 3.5 mmol/L (3.5-5.0)
[2017-03-01 08:23] VITALS: BP 181/90
[2017-03-01] MEDS: POLYETHYLENE GLYCOL 3350 17 GM PACKET PO SCH (09:19)
[2017-03-01] MEDS: PROPRANOLOL 10 MG TABLET PO SCH (09:20)
[2017-03-01] MEDS: buPROPion XL 150 MG TABLET PO SCH (09:20)
[2017-03-01] MEDS: LISINOPRIL 5 MG TABLET PO SCH (09:20)
[2017-03-01] MEDS: FLUoxetine 10 MG CAPSULE PO SCH (09:20)
[2017-03-01] MEDS: INSULIN ASPART 300 UNIT/3 ML PEN SUBQ SCH (09:21)
[2017-03-01] MEDS: GUANFACINE HCL 2 MG PO SCH (09:23)
[2017-03-01] MEDS: SODIUM CHLORIDE FLUSH 0.9% 10 ML SYRINGE IVP SCH (09:23)
--- NOTE | 2017-03-01 10:56 | Discharge Plan ---
Discharge Plan Disposition: Home, Self Care Prescriptions: Sucralfate [Carafate] 1 gm PO BID #30 ml Omeprazole [PriLOSEC] 10 mg PO BIDAC #30 capsule Diet: Diabetic Activity Restrictions: Activity as Tolerated Shower Restrictions: No Weight Bearing: Full Weight Additional Instructions or Follow Up instructions: May follow up PCP in two weeks, and Dr.John Villalobos for outpatient Colonoscopy If symptom return or worsen, please call 911 or go to the nearest emergence department. patient is welcomed to our service. Follow-Up Care: [facility] [place] [facility] Ed No Smoking: If you smoke, Please STOP! Call for help.
--- NOTE | 2017-03-04 13:01 | DISCHARGE SUMMARY ---
DATE OF ADMISSION: 02/27/2017 DATE OF DISCHARGE: 03/01/2017 CHIEF COMPLAINT: GI bleeding. DISCHARGE DIAGNOSES: 1. Gastrointestinal bleeding. 2. Diabetes. 3. Hypertension. 4. Kidney stones. 5. Anxiety. MEDICATIONS AT DISCHARGE: New medication will be: 1. Carafate 1 mg b.i.d. 2. Omeprazole 10 mg b.i.d. Home medications: 3. Oxycodone 5 mg p.o. q. 4 to 6 hours p.r.n. for pain. 4. Wellbutrin 300 p.o. daily. 5. Zofran 4 mg p.o. q. 6 hrs p.r.n. 6. 2 mg p.o. q. p.m. 7. Fluoxetine 40 mg p.o. daily. 8. 10 mg p.o. b.i.d. 9. Albuterol 2 puffs INH q. 4 p.r.n. 10. Metformin 1000 mg p.o. b.i.d. 11. Gabapentin 900 p.o. t.i.d. 12. Lisinopril 10 mg p.o. daily. HOSPITAL COURSE: The patient admitted on February 27 and complaining of GI bleeding. At the time the kaylene ent's hemoglobin was 10.8 and 2 weeks ago at patient report when she had blood work her hemoglobin wa s 13.6, so 2 weeks dropped 3 units of the blood. The patient also reports she has dark melanotic stoo l for 4 days. The patient also reported she takes Naproxen for pain control, but she reported she onl y took it 7 times of the Naproxen. So patient here on February 28, 2017, did have EGD, but EGD did not sh ow any active bleeding site to have also in the stomach area. The patient wanted to be discharged and wanted to go home and I called surgeon patient to have outpatient colonoscopy and patient a greeing and patient will call the surgeon and make an appointment to do outpatient colonoscopy. The p atient also advised to see PCP in 2 weeks. Patient also advised if symptoms return or continue to yahir l 911 and return to the emergency room. IMAGING STUDIES: Because patient GI bleeding, not any other complaints, no other imaging joelle dies here. INTERVENTION: The patient did have the EGD on February 28, 2017, with results as dictated, no active blee ding found. PHYSICAL EXAM: GENERAL: Patient is alert and oriented x3. HEENT: Normocephalic, atraumatic. NECK: Trachea in the middle. HEART: Regular rate and rhythm. LUNGS: Clear to auscultation bilaterally. ABDOMEN:Soft, normal bowel sounds. No distention. EXTREMITIES: Full range of motion. NEUROLOGICAL STATUS: Normal cranial nerves, normal sensation, normal . LABORATORY STUDIES: Hemoglobin February 27 was 10.8; February 28, 10.1; and March 01 hemoglobin 10.9. Patient' s hemoglobin slight increase. FOLLOWUP: Will followup with PCP in 2 weeks and followup with surgeon and schedule for colonoscopy. C ardiac diet. Activity as tolerated. Time spent 50 minutes. JOB #: [id number] EXT JOB #:[id number]
== END 2017-03-01 11:27 | disposition home or self-care (01) | DRG 379 ==
LOC: ED 10:48 → MS 13:40
PROVIDERS: ADMIT Nurse Practitioner Gerontology; ATTEND Nurse Practitioner Gerontology
PROC: 0DB98ZX Excision of Duodenum, Via Natural or Artificial Opening Endoscopic, Diagnostic (ICD-10-PCS; principal; 2017-02-28 14:45)
DX: K92.1 Melena (principal); E11.9 Type 2 diabetes mellitus without complications; I10 Essential (primary) hypertension; N20.0 Calculus of kidney; F41.9 Anxiety disorder, unspecified; K29.60 Other gastritis without bleeding; K29.80 Duodenitis without bleeding; J44.9 Chronic obstructive pulmonary disease, unspecified; Z86.19 Personal history of other infectious and parasitic diseases; Z87.442 Personal history of urinary calculi; Z87.891 Personal history of nicotine dependence; Z79.891 Long term (current) use of opiate analgesic; Z79.1 Long term (current) use of non-steroidal anti-inflammatories (NSAID); Z79.51 Long term (current) use of inhaled steroids; Z79.899 Other long term (current) drug therapy; Z96.89 Presence of other specified functional implants
CPT/HCPCS: 36415; 80053; 83036; 83690; 83735; 85025; 85610; 85730; 86850; 86900; 86901; 87081; 88305; 94640; 96365; 99283; 99284

== ENCOUNTER 2017-03-09 14:47 | Emergency (ER) | payer MEDICAID ==
--- NOTE | 2017-03-09 15:54 | ED Physician Documentation ---
PD HPI ABD PAIN - Stated complaint Stated Complaint: VOMITING - Chief complaint Chief Complaint: Abd Pain - History obtained from History obtained from: Patient, Family - History of Present Illness Timing - onset: Other (61-year-old woman with history of GI bleeding, hepatitis C, renal colic. She was diagnosed with renal colic with hydronephrosis earlier this month and had a stent placed on the left. She has had ongoing left-sided abdominal pain from that ever since, she was started on naproxen and developed upper GI bleeding which on EGD here was shown to be due to gastritis. She was started on Carafate and the naproxen was discontinued. For unclear reasons she did not restart omeprazole despite that fact that this was on her discharge summary. She was doing well for several days after discharge, but about 3 days ago developed diarrhea, basically should get a squirt of loose stool every time she sat down to have a urination, but was not large volume. Starting yesterday she developed vomiting. And also a bad headache which was gradual in onset and she thinks it was from the vomiting. There is no associated fever. She has ongoing bleeding, she thinks vaginally, although she only sees it when she urinates and wipes so I suspect is actually hematuria.) Review of Systems Ten Systems: 10 systems reviewed and negative Constitutional: denies: Fever, Chills Nose: denies: Rhinorrhea / runny nose, Congestion Cardiac: denies: Chest pain / pressure, Palpitations Respiratory: denies: Dyspnea, Cough PD PAST MEDICAL HISTORY - Past Medical History Cardiovascular: Hypertension Respiratory: COPD, Pneumonia Neuro: None Endocrine/Autoimmune: Type 2 diabetes GI: GERD, Cirrhosis SYSTEMS REQUIREMENTS PLANNER: None : Kidney stones HEENT: Other Psych: Depression, Anxiety Musculoskeletal: Osteoarthritis Derm: Other - Past Surgical History Past Surgical History: Yes General: Gastric surgery, EGD /SYSTEMS REQUIREMENTS PLANNER: Tubal ligation HEENT: Cataracts - Present Medications Home Medications: Ambulatory Orders Medication Instructions Recorded Confirmed FLUoxetine [PROzac] 40 mg PO DAILY 05/15/13 02/27/17 buPROPion [Wellbutrin Xl] 300 mg PO DAILY 05/15/13 02/27/17 Guanfacine HCl [Tenex] 2 mg ORAL QPM 03/31/14 02/27/17 Propranolol [Inderal] 10 mg PO BID 02/07/17 02/27/17 Ondansetron Odt [Zofran Odt] 4 mg TL Q6H PRN #15 tablet 02/14/17 02/27/17 oxyCODONE [Roxicodone] 5 mg PO Q4-6H PRN #30 tablet 02/14/17 02/27/17 Albuterol Sulfate [Proair Hfa 2 puffs INH Q4H PRN 02/27/17 02/27/17 Inhaler] Gabapentin [Neurontin] 900 mg PO TID 02/27/17 02/27/17 Lisinopril [Prinivil] 10 mg PO DAILY 02/27/17 02/27/17 Metformin HCl [Glucophage] 1,000 mg PO BID 02/27/17 02/27/17 Omeprazole [PriLOSEC] 10 mg PO BIDAC #30 capsule 03/01/17 Sucralfate [Carafate] 1 gm PO BID #30 ml 03/01/17 Ciprofloxacin HCl [Cipro] 500 mg PO BID #14 tablet 03/09/17 Omeprazole 20 mg PO BID #60 tablet. 03/09/17 Promethazine [Phenergan] 25 - 50 mg PO Q6H PRN #15 tab 03/09/17 - Allergies Allergies/Adverse Reactions: Allergies Allergy/AdvReac Type Severity Reaction Status Date / Time latex AdvReac Intermediate Hives Verified 12/12/14 11:22 - Social History Does the pt smoke?: No Smoking Status: Former smoker Does the pt drink ETOH?: No Does the pt have substance abuse?: No - Immunizations Immunizations are current?: Yes - POLST Patient has POLST: No PD ED PE NORMAL - Vitals Vital signs reviewed: Yes - General General: Alert and oriented X 3, No acute distress - Neck Neck: Supple, no meningeal sign, No bony TTP - Cardiac Cardiac: RRR, No murmur - Respiratory Respiratory: No respiratory distress, Clear bilaterally - Abdomen Abdomen: Normal bowel sounds, Soft, Other (Mild right upper quadrant tenderness without surgical signs) - Derm Derm: Normal color, Warm and dry - Extremities Extremities: No edema, No calf tenderness / cord - Neuro Neuro: Alert and oriented X 3, Normal speech - Psych Psych: Normal mood, Normal affect Results - Vitals Vitals: Vital Signs - 24 hr 03/09/17 03/09/17 14:51 18:00 Temperature 36.8 C Heart Rate 63 68 Respiratory 17 Rate Blood Pressure 162/80 H 146/94 H O2 Saturation 99 99 Oxygen O2 Source Room air - Labs Labs: Laboratory Tests 03/09/17 03/09/17 03/09/17 16:00 16:00 16:00 WBC 10.6 RBC 4.01 L Hgb 12.0 Hct 35.2 L MCV 87.9 MCH 30.1 MCHC 34.2 RDW 14.4 Plt Count 258 MPV 7.8 L Neut # 8.1 H Lymph # 2.0 [place] # 0.4 Eos # 0.1 Baso # 0.0 Absolute Nucleated RBC 0.00 Nucleated RBCs 0.0 Sodium 136 Potassium 3.8 Chloride 104 Carbon Dioxide 22 Anion Gap 10.0 BUN 24 H Creatinine 0.8 Estimated GFR (MDRD) 73 L Glucose 118 H Calcium 9.4 Total Bilirubin 0.6 AST 24 ALT 22 Alkaline Phosphatase 74 Total Protein 7.6 Albumin 4.0 Globulin 3.6 Albumin/Globulin Ratio 1.1 Lipase 139 H Urine Color DARK YELLOW Urine Clarity SL. CLOUDY Urine pH 6.0 Ur Specific [place] >=1.030 H Urine Protein 100 H Urine Glucose (UA) NEGATIVE Urine Ketones NEGATIVE Urine Occult Blood LARGE H Urine Nitrite NEGATIVE Urine Bilirubin NEGATIVE Urine Urobilinogen 0.2 (NORMAL) Ur Leukocyte Esterase SMALL H Urine RBC TNTC H Urine WBC 11-25 H Ur Epithelial Cells FEW Transitional Ur Squamous Epith Cells RARE Squamous Urine Crystals 6-10 Calcium Oxalate Urine Bacteria Few Urine Yeast PRESENT Ur Microscopic Review INDICATED Urine Culture Comments INDICATED - Rads (name of study) Abd sono Radiology: EMP read contemporaneously (No gallstones, shadowing L renal hilar calcification) PD MEDICAL DECISION MAKING - ED course ED course: 61yo woman with V/D, some RUQ TTP. Labs benign. Case discussed with YOKASTA Payne filteration operator for her urologist who recommended abx given pyuria which agreed was likely reactive to stent but wants her covered. Departure - Departure Disposition: 01 Home, Self Care Clinical Impression: Pyuria, Ureterolithiasis Abdominal pain Qualifiers: Abdominal location: right upper quadrant Qualified Code(s): R10.11 - Right upper quadrant pain Condition: Good Record reviewed to determine appropriate education?: Yes Instructions: Abdominal Pain, ED Stone Renal W Colic Prescriptions: Ciprofloxacin HCl [Cipro] 500 mg PO BID #14 tablet Omeprazole 20 mg PO BID #60 tablet. Promethazine [Phenergan] 25 - 50 mg PO Q6H PRN #15 tab PRN Reason: Nausea / Vomiting Comments: Follow-up with your urologist as soon as possible. Return if worse or if new symptoms develop, especially fever. Your blood pressure was elevated today on check into the emergency department. This does not mean that you have hypertension, it is a common phenomenon to come to the emergency department and have elevated blood pressure. I recommend that she see her primary care physician within the week to have it rechecked when you are feeling better.
[2017-03-09] MEDS ORDERED: ONDANSETRON 4 MG/2 ML VIAL IVP STA (16:01)
[2017-03-09] MEDS ORDERED: SODIUM CHLORIDE 0.9% 1,000 ML IV ONE (16:01)
[2017-03-09] MEDS ORDERED: ONDANSETRON 4 MG/2 ML VIAL ONE (16:12)
[2017-03-09 16:25] LABS: BILIRUBIN,URINE NEGATIVE (NEGATIVE)
[2017-03-09 16:26] LABS: BASOPHILS % (AUTO) 0.3 %; EOSINOPHILS # (AUTO) 0.1 10^3/uL (0.0-0.7); EOSINOPHILS % (AUTO) 0.9 %; HCT - HEMATOCRIT 35.2 % (37.0-47.0); LYMPHOCYTES % (AUTO) 18.5 %; MEAN CORPUSCULAR HEMOGLOBIN 30.1 pg (27.0-31.0); MEAN CORPUSCULAR HGB CONC 34.2 g/dL (32.0-36.0); MEAN CORPUSCULAR VOLUME 87.9 fL (81.0-99.0); MEAN PLATELET VOLUME 7.8 fL (7.9-10.8); MONOCYTES # (AUTO) 0.4 10^3/uL (0.0-1.0); MONOCYTES % (AUTO) 3.4 %; NEUTROPHILS # (AUTO) 8.1 10^3/uL (1.5-6.6); NEUTROPHILS % (AUTO) 76.9 %; RED BLOOD COUNT 4.01 10^6/uL (4.20-5.40); RED CELL DISTRIBUTION WIDTH 14.4 % (12.0-15.0); UA w/ MICROSCOPIC CHARGE YES; UNCORRECTED WHITE BLOOD COUNT 10.6 x10^3/uL; WHITE BLOOD COUNT 10.6 x10^3/uL (4.8-10.8)
[2017-03-09 16:38] LABS: ALBUMIN/GLOBULIN RATIO 1.1 (1.0-2.2); BILIRUBIN,TOTAL 0.6 mg/dL (0.2-1.0); CALCIUM 9.4 mg/dL (8.5-10.3); CREATININE 0.8 mg/dL (0.4-1.0); POTASSIUM 3.8 mmol/L (3.5-5.0); TOTAL PROTEIN 7.6 g/dL (6.7-8.2)
[2017-03-09 16:39] LABS: UR CULTURE IF IND INDICATED
--- NOTE | 2017-03-09 17:46 | Ultrasound Preliminary Report ---
Exam: US Abdomen Complete IMPRESSION: 1. No gallstones, wall thickening, or dilated ducts. 2. Shadowing left renal hilar calcification 1.6 x 1.1 x 1.6 cm. [facility] SITE ID: [id number]
--- NOTE | 2017-03-09 17:48 | Ultrasound Report ---
EXAM: ABDOMEN ULTRASOUND EXAM DATE: 03/09/2017 05:18 PM. CLINICAL HISTORY: RUQ pain. History of left renal stent for staghorn calculus. COMPARISON: CT 02/15/2016. TECHNIQUE: Real-time scanning was performed with static images obtained. FINDINGS: Liver: Normal in size and echotexture. 19.1 cm. Main portal vein flow: Hepatopetal. Gallbladder: Distended, with phrygian cap. No stones, wall thickening, or sonographic Low's sign. Biliary System: Common bile duct measures 5 mm. No intrahepatic or extrahepatic ductal dilatation. Pancreas: Visualized portion is unremarkable. Kidneys: Right: 12.2 cm longitudinally. Upper pole cyst noted 1.6 x 1.5 x 1.4 cm. No contour-deforming mass, s tones, or hydronephrosis. Left: 9.8 cm longitudinally. Shadowing hilar calcification 1.6 x 1.1 x 1.6 cm. No contour-deforming m ass, stones, or hydronephrosis. Spleen: 12.8 x 8.3 x 7.0 cm. Normal in size and echotexture. Aorta and Inferior Vena Cava: Unremarkable. No free fluid. IMPRESSION: 1. No gallstones, wall thickening, or dilated ducts. 2. Shadowing left renal hilar calcification 1.6 x 1.1 x 1.6 cm. LENÓ Referring Provider Line: [phone] SITE ID: [id number]
[2017-03-09] MEDS ORDERED: CIPROFLOXACIN 250 MG TABLET PO STA (17:58)
[2017-03-09 18:01] VITALS: BP 146/94
[2017-03-09] MEDS ORDERED: CIPROFLOXACIN 250 MG TABLET PO ONE (18:10)
== END 2017-03-09 18:19 | disposition home or self-care (01) ==
LOC: ED 14:47
DX: N39.0 Urinary tract infection, site not specified (principal); N20.1 Calculus of ureter; Z87.442 Personal history of urinary calculi; B19.20 Unspecified viral hepatitis C without hepatic coma; R10.11 Right upper quadrant pain; I10 Essential (primary) hypertension; J44.9 Chronic obstructive pulmonary disease, unspecified; E11.9 Type 2 diabetes mellitus without complications; K21.9 Gastro-esophageal reflux disease without esophagitis; M19.90 Unspecified osteoarthritis, unspecified site; Z87.891 Personal history of nicotine dependence
CPT/HCPCS: 36415; 76700; 80053; 81001; 83690; 85025; 87086; 96374; 99283; 99284; A9270; 81003

== ENCOUNTER 2017-03-24 01:20 | Outpatient (CLI) | payer MEDICAID | END 2017-03-24 01:21 | disposition short-term general hospital (02) | LOC: EMS 01:20 | PROVIDERS: ATTEND Surgery | DX: R11.10 Vomiting, unspecified (principal) | CPT/HCPCS: A0425; A0429 ==

== ENCOUNTER 2017-03-25 23:35 | Outpatient (CLI) | payer MEDICAID | END 2017-03-25 23:36 | disposition EMS.NT | LOC: EMS 23:35 | PROVIDERS: ATTEND Surgery | DX: R31.9 Hematuria, unspecified (principal) ==

== ENCOUNTER 2017-03-28 19:18 | Emergency (ER) | payer MEDICAID ==
[2017-03-28] MEDS ORDERED: HYDROmorphone 1 MG/ML SYRINGE IM STA (19:51)
[2017-03-28] MEDS ORDERED: OXYBUTYNIN 5MG TABLET PO STA (19:51)
--- NOTE | 2017-03-28 19:54 | ED Physician Documentation ---
History of Present Illness - Stated complaint Stated Complaint: LEG PAIN - Chief complaint Chief Complaint: Back Pain - History obtained from History obtained from: Patient, Family - History of Present Illness Timing: Other (61-year-old with a history of chronic back pain who recently had kidney stone removal and had a Cardoza catheter until 9 AM today. She was fine after the catheter removed with this evening's developed severe right lower back pain radiating into the right thigh while trying to have a urination. Pain is severe and unlike anything she is ever had before. There is no saddle anesthesia or urinary retention.) Review of Systems Constitutional: denies: Fever, Chills Throat: denies: Dental pain / toothache, Sore throat Cardiac: denies: Chest pain / pressure, Palpitations Respiratory: denies: Dyspnea GI: denies: Abdominal Pain, Vomiting, Diarrhea, Hematemesis, Bloody / black stool PD PAST MEDICAL HISTORY - Past Medical History Past Medical History: Yes Cardiovascular: Hypertension Respiratory: COPD, Pneumonia Neuro: None Endocrine/Autoimmune: Type 2 diabetes GI: GERD, Cirrhosis MAIL PROCESSING ASSOCIATE: None : Kidney stones HEENT: Other Psych: Depression, Anxiety Musculoskeletal: Osteoarthritis Derm: Other - Past Surgical History Past Surgical History: Yes General: Gastric surgery, EGD /MAIL PROCESSING ASSOCIATE: Tubal ligation HEENT: Cataracts - Present Medications Home Medications: Ambulatory Orders Medication Instructions Recorded Confirmed FLUoxetine [PROzac] 40 mg PO DAILY 05/15/13 02/27/17 buPROPion [Wellbutrin Xl] 300 mg PO DAILY 05/15/13 02/27/17 Guanfacine HCl [Tenex] 2 mg ORAL QPM 03/31/14 02/27/17 Propranolol [Inderal] 10 mg PO BID 02/07/17 02/27/17 Ondansetron Odt [Zofran Odt] 4 mg TL Q6H PRN #15 tablet 02/14/17 02/27/17 oxyCODONE [Roxicodone] 5 mg PO Q4-6H PRN #30 tablet 02/14/17 02/27/17 Albuterol Sulfate [Proair Hfa 2 puffs INH Q4H PRN 02/27/17 02/27/17 Inhaler] Gabapentin [Neurontin] 900 mg PO TID 02/27/17 02/27/17 Lisinopril [Prinivil] 10 mg PO DAILY 02/27/17 02/27/17 Metformin HCl [Glucophage] 1,000 mg PO BID 02/27/17 02/27/17 Omeprazole [PriLOSEC] 10 mg PO BIDAC #30 capsule 03/01/17 Sucralfate [Carafate] 1 gm PO BID #30 ml 03/01/17 Ciprofloxacin HCl [Cipro] 500 mg PO BID #14 tablet 03/09/17 Omeprazole 20 mg PO BID #60 tablet. 03/09/17 Promethazine [Phenergan] 25 - 50 mg PO Q6H PRN #15 tab 03/09/17 diazePAM [Valium] 5 mg PO TID PRN #15 tablet 03/28/17 - Allergies Allergies/Adverse Reactions: Allergies Allergy/AdvReac Type Severity Reaction Status Date / Time latex AdvReac Intermediate Hives Verified 03/28/17 19:28 - Social History Does the pt smoke?: No Smoking Status: Former smoker Does the pt drink ETOH?: No Does the pt have substance abuse?: No - Immunizations Immunizations are current?: Yes - POLST Patient has POLST: No PD ED PE NORMAL - Vitals Vital signs reviewed: Yes - General General: Alert and oriented X 3, Other (Obviously in pain) - Abdomen Abdomen: Soft, Non tender - Back Back: Other (Tender the right paralumbar region which reproduces her pain.The patient has equal and normal Achilles and patellar reflexes bilaterally. Normal sensation in all areas of the legs. Patient denies saddle anesthesia. Normal strength in flexion-extension at the ankles, knees, and flexion of the hips.) - Extremities Extremities: No edema, No calf tenderness / cord - Neuro Neuro: Alert and oriented X 3, Normal speech - Psych Psych: Normal mood, Normal affect Results - Vitals Vitals: Vital Signs - 24 hr 03/28/17 19:28 Temperature 36.1 C L Heart Rate 83 Respiratory 20 Rate Blood Pressure 167/85 H O2 Saturation 96 Oxygen O2 Source Room air PD MEDICAL DECISION MAKING - ED course ED course: 61-year-old woman presents with back and leg pain consistent with sciatica. Given her postoperative state DVT is considered but the location and quality of her pain is inconsistent. There is no evidence of urinary retention, bladder scan was not very high.Pain medications were given in a stepwise manner with good improvement in her pain and she was much more comfortable. Departure - Departure Disposition: Home, Self Care Clinical Impression: Sciatica Qualifiers: Laterality: right Qualified Code(s): M54.31 - Sciatica, right side Condition: Good Record reviewed to determine appropriate education?: Yes Instructions: ED Sciatica Prescriptions: diazePAM [Valium] 5 mg PO TID PRN #15 tablet PRN Reason: Spasms Comments: Call your doctor to arrange a follow-up appointment, make the next available appointment. In the interim, return anytime if worse or if new symptoms develop. Your blood pressure was elevated today on check into the emergency department. This does not mean that you have hypertension, it is a common phenomenon to come to the emergency department and have elevated blood pressure. I recommend that she see her primary care physician within the week to have it rechecked when you are feeling better.
[2017-03-28] MEDS ORDERED: HYDROmorphone 1 MG/ML SYRINGE ONE (20:00)
[2017-03-28] MEDS ORDERED: LORazepam 2 MG/ML SYRINGE IM STA (20:37)
[2017-03-28] MEDS ORDERED: KETOROLAC 60 MG/2 ML VIAL IM STA (20:37)
[2017-03-28] MEDS ORDERED: LORazepam 2 MG/ML SYRINGE ONE (20:42)
[2017-03-28] MEDS ORDERED: KETOROLAC 60 MG/2 ML VIAL ONE (20:43)
[2017-03-28 21:21] VITALS: BP 143/76
== END 2017-03-28 21:21 | disposition home or self-care (01) ==
LOC: ED 19:18
DX: M54.31 Sciatica, right side (principal); I10 Essential (primary) hypertension; E11.9 Type 2 diabetes mellitus without complications; Z87.891 Personal history of nicotine dependence; Z79.84 Long term (current) use of oral hypoglycemic drugs
CPT/HCPCS: 51798; 96372; 99283; A9270; J1170; J2060

== ENCOUNTER 2017-04-05 11:16 | Outpatient (CLI) | payer MEDICAID ==
--- NOTE | 2017-04-05 15:17 | XRAY Report ---
COMPLETE LUMBAR SPINE: 04/05/2017 CLINICAL INDICATION: Back pain. FINDINGS: AP, lateral, oblique, coned-down views of the lumbar spine demonstrate mild degenerative d isk and facet disease. There is no evidence of compression fracture or subluxation. The bowel gas p attern is normal. IMPRESSION: MILD DEGENERATIVE CHANGES. NO EVIDENCE OF FRACTURE. JOB #: [id number] EXT JOB #:[id number]
== END 2017-04-05 11:17 | disposition home or self-care (01) ==
LOC: DI.N 11:16
PROVIDERS: ATTEND Family Medicine
DX: M54.5 Low back pain (principal); M51.36 Other intervertebral disc degeneration, lumbar region
CPT/HCPCS: 72110

== ENCOUNTER 2017-04-14 20:23 | Emergency (ER) | payer MEDICAID ==
[2017-04-14] MEDS ORDERED: KETOROLAC 60 MG/2 ML VIAL IM STA (21:35)
[2017-04-14 21:58] LABS: BILIRUBIN,URINE NEGATIVE (NEGATIVE)
[2017-04-14 22:02] LABS: UA w/ MICROSCOPIC CHARGE YES
[2017-04-14] MEDS ORDERED: KETOROLAC 60 MG/2 ML VIAL ONE (22:02)
[2017-04-14 22:20] LABS: WBC,URINE >25 /HPF (0-5)
[2017-04-14 22:21] LABS: UR CULTURE IF IND INDICATED
--- NOTE | 2017-04-14 23:49 | CT Preliminary Report ---
Exam: CT Abdomen/Pelvis W/O IMPRESSION: 1. Moderately to severely obstructing 6 x 5 x 6 mm proximal to mid left ureteral stone. 2. Tiny nonobstructing left renal stone with significantly decreased stone burden compared to the rec ent study. 3. Cirrhosis. [facility] SITE ID: [id number]
--- NOTE | 2017-04-14 23:55 | CT Report ---
EXAM: CT ABDOMEN AND PELVIS (CT KUB) EXAM DATE: 04/14/2017 11:30 PM. CLINICAL HISTORY: Multiple stones, left-sided flank pain. COMPARISONS: 02/14/2017. TECHNIQUE: Routine axial helical CT imaging was performed through the abdomen and pelvis without IV c ontrast. Reconstructions: Coronal and sagittal. In accordance with CT protocol optimization, one or more of the following dose reduction techniques w ere utilized for this exam: automated exposure control, adjustment of mA and/or KV based on patient s ize, or use of iterative reconstructive technique. FINDINGS: Lung Bases: Unremarkable. Right Kidney/Ureter: No stones, hydronephrosis, or hydroureter. Small right renal cyst again noted. Left Kidney/Ureter: Moderately to severely obstructing 6 x 5 x 6 mm proximal to mid left ureteral sto ne. Additional tiny nonobstructing stone at the lower pole. Moderate perinephric and periureteral del ma. Otherwise grossly unremarkable. Other Abdominal Organs: Noncontrast images of the abdominal organs are grossly unremarkable with exce ption of surrounding morphology to the liver and mild splenomegaly. Peritoneal Cavity: No free fluid, free air or rufus adenopathy. No excessive stool burden. Bowel is g rossly unremarkable. Pelvic Organs: No bladder stones or gross wall thickening. Noncontrast images of the visualized pelvi c organs are unremarkable. Vasculature: Unremarkable. Other: None. IMPRESSION: 1. Moderately to severely obstructing 6 x 5 x 6 mm proximal to mid left ureteral stone. 2. Tiny nonobstructing left renal stone with significantly decreased stone burden compared to the rec ent study. 3. Cirrhosis. [facility] Referring Provider Line: [phone] SITE ID: [id number]
--- NOTE | 2017-04-15 00:14 | ED Physician Documentation ---
PD HPI FEMALE - Stated complaint Stated Complaint: BACK PX - Chief complaint Chief Complaint: Abd Pain - History obtained from History obtained from: Patient, Family - History of Present Illness Timing - onset: How many days ago (2) Timing - details: Gradual onset, Still present Associated symptoms: Abdominal pain, Pelvic pain, Urinary frequency Similar symptoms before: Work up / diagnostics, Treatment, Follow up Recently seen: Not recently seen - Additional information Additional information: Patient is a 61 year old female with a history of multiple kidney stones and and urinary tract infections with urethral stents in the the past who is presenting to the emergency department for flank pain radiating to her grown and painful urination. Review of Systems Constitutional: denies: Fever, Chills Eyes: denies: Photophobia Ears: denies: Ear pain, Drainage/discharge Throat: denies: Sore throat GI: reports: Abdominal Pain, Nausea. denies: Vomiting, Constipation, Diarrhea : reports: Hematuria. denies: Dysuria, Frequency Skin: denies: Rash, Lesions Musculoskeletal: reports: Back pain Neurologic: denies: Generalized weakness, Focal weakness, Numbness Immunocompromised: denies: Immunocompromised PD PAST MEDICAL HISTORY - Past Medical History Cardiovascular: Hypertension Respiratory: COPD, Pneumonia Neuro: None Endocrine/Autoimmune: Type 2 diabetes GI: GERD, Cirrhosis PRODUCTION ENGINEER: None : Kidney stones HEENT: Other Psych: Depression, Anxiety Musculoskeletal: Osteoarthritis Derm: Other - Past Surgical History Past Surgical History: Yes General: Gastric surgery, EGD /PRODUCTION ENGINEER: Tubal ligation HEENT: Cataracts - Present Medications Home Medications: Ambulatory Orders Medication Instructions Recorded Confirmed FLUoxetine [PROzac] 40 mg PO DAILY 05/15/13 02/27/17 buPROPion [Wellbutrin Xl] 300 mg PO DAILY 05/15/13 02/27/17 Guanfacine HCl [Tenex] 2 mg ORAL QPM 03/31/14 02/27/17 Propranolol [Inderal] 10 mg PO BID 02/07/17 02/27/17 Ondansetron Odt [Zofran Odt] 4 mg TL Q6H PRN #15 tablet 02/14/17 02/27/17 oxyCODONE [Roxicodone] 5 mg PO Q4-6H PRN #30 tablet 02/14/17 02/27/17 Albuterol Sulfate [Proair Hfa 2 puffs INH Q4H PRN 02/27/17 02/27/17 Inhaler] Gabapentin [Neurontin] 900 mg PO TID 02/27/17 02/27/17 Lisinopril [Prinivil] 10 mg PO DAILY 02/27/17 02/27/17 Metformin HCl [Glucophage] 1,000 mg PO BID 02/27/17 02/27/17 Omeprazole [PriLOSEC] 10 mg PO BIDAC #30 capsule 03/01/17 Sucralfate [Carafate] 1 gm PO BID #30 ml 03/01/17 Ciprofloxacin HCl [Cipro] 500 mg PO BID #14 tablet 03/09/17 Omeprazole 20 mg PO BID #60 tablet. 03/09/17 Promethazine [Phenergan] 25 - 50 mg PO Q6H PRN #15 tab 03/09/17 diazePAM [Valium] 5 mg PO TID PRN #15 tablet 03/28/17 Levofloxacin [Levaquin] 750 mg PO DAILY #5 tablet 04/15/17 Oxycodone HCl/Acetaminophen 1 - 2 each PO Q6H PRN #10 tablet 04/15/17 [Percocet 5-325 mg Tablet] Tamsulosin [Flomax] 0.4 mg PO DAILY #14 capsule 04/15/17 - Allergies Allergies/Adverse Reactions: Allergies Allergy/AdvReac Type Severity Reaction Status Date / Time latex AdvReac Intermediate Hives Verified 03/28/17 19:28 - Social History Does the pt smoke?: No Smoking Status: Former smoker Does the pt drink ETOH?: No Does the pt have substance abuse?: No - Immunizations Immunizations are current?: Yes - POLST Patient has POLST: No PD ED PE NORMAL - Vitals Vital signs reviewed: Yes - General General: Alert and oriented X 3 - HEENT HEENT: Atraumatic, PERRL - Neck Neck: Supple, no meningeal sign - Cardiac Cardiac: RRR, No murmur - Respiratory Respiratory: No respiratory distress - Abdomen Abdomen: Soft, Non distended - Derm Derm: Normal color, Warm and dry, No rash - Extremities Extremities: No deformity, Normal ROM s pain, No edema - Neuro Neuro: Alert and oriented X 3, No motor deficit, No sensory deficit - Psych Psych: Normal mood PD ED PE EXPANDED - General General: Alert, In Pain - HEENT HEENT: Dry mucous membranes - Back Back: CVA TTP left, Other (previous scarring on patients left flank) Results - Vitals Vitals: Vital Signs - 24 hr 04/14/17 04/15/17 20:48 00:52 Temperature 36.7 C Heart Rate 84 81 Respiratory 18 18 Rate Blood Pressure 179/87 H 139/89 H O2 Saturation 98 100 Oxygen O2 Source Room air - Labs Labs: Laboratory Tests 04/14/17 21:30 Urine Color YELLOW Urine Clarity CLOUDY Urine pH 6.0 Ur Specific Levan >=1.030 H Urine Protein >=300 H Urine Glucose (UA) NEGATIVE Urine Ketones NEGATIVE Urine Occult Blood MODERATE H Urine Nitrite POSITIVE H Urine Bilirubin NEGATIVE Urine Urobilinogen 0.2 (NORMAL) Ur Leukocyte Esterase TRACE H Urine RBC 11-25 H Urine WBC >25 H Ur Squamous Epith Cells NONE SEEN Urine Bacteria Few Ur Microscopic Review INDICATED Urine Culture Comments INDICATED - Rads (name of study) ct abdomen and pelvis Radiology: Final report received (obstructing stone 5mm by 6mm), See rad report PD MEDICAL DECISION MAKING - ED course Complexity details: reviewed old records, reviewed results, re-evaluated patient , considered differential, d/w patient ED course: Patient was seen and examined at beside. Urine was collected and patient was sent for imaging. when patient returned the results were reviewed. Patient was found to have an obstructing stone and urinary tract infection. Patient was made aware of the findings and was told that she would need to be transferred. patient stated that she did not want to go today and that she would follow up tomorrow or go to the ER tomorrow. Patient was treated with levaquin. the risks of leaving were made aware to the family. patient stated that she still wanted to leave. Patient signed out AMA. Departure - Departure Disposition: Against Medical Advice Clinical Impression: Ureterolithiasis Condition: Stable Instructions: ED Stone Renal W Colic Follow-Up: Pasquale Abreu MD [Primary Care Provider] - Tomorrow Prescriptions: Tamsulosin [Flomax] 0.4 mg PO DAILY #14 capsule Levofloxacin [Levaquin] 750 mg PO DAILY #5 tablet Oxycodone HCl/Acetaminophen [Percocet 5-325 mg Tablet] 1 - 2 each PO Q6H PRN # 10 tablet PRN Reason: pain Comments: Your symptoms today are being caused by a kidney stone that is blocking your ureter. You also have a urinary tract infection with it. It is imperative that you see the doctor tomorrow. You may return to the emergency department at any time for new, worsening or uncontrollable symptoms. Discharge Date/Time: 04/15/17 00:53
[2017-04-15] MEDS ORDERED: levoFLOXacin 250 MG TABLET PO STA (00:16)
[2017-04-15] MEDS ORDERED: levoFLOXacin 250 MG TABLET ONE (00:27)
[2017-04-15 00:53] VITALS: BP 139/89
== END 2017-04-15 00:53 | disposition left against medical advice (07) ==
LOC: ED 20:23
DX: N20.1 Calculus of ureter (principal); E11.8 Type 2 diabetes mellitus with unspecified complications; I10 Essential (primary) hypertension; Z79.84 Long term (current) use of oral hypoglycemic drugs; Z87.891 Personal history of nicotine dependence
CPT/HCPCS: 74176; 81001; 87086; 96372; 99283; 99284; A9270; 81003

== ENCOUNTER 2017-04-15 05:48 | Outpatient (CLI) | payer MEDICAID | END 2017-04-15 05:49 | disposition short-term general hospital (02) | LOC: EMS 05:48 | PROVIDERS: ATTEND Surgery | DX: N20.0 Calculus of kidney (principal) | CPT/HCPCS: A0425; A0427 ==

== ENCOUNTER 2020-12-21 11:40 | Outpatient (CLI) | payer MEDICAID ==
[2020-12-21 18:04] LABS: BILIRUBIN,URINE NEGATIVE (NEGATIVE); GLUCOSE, URINE (UA) >=1000 mg/dL (NEGATIVE); KETONES,URINE (UA) NEGATIVE (NEGATIVE); LEUKOCYTE ESTERASE, URINE SMALL (NEGATIVE); NITRITE,URINE POSITIVE (NEGATIVE); OCCULT BLOOD,URINE NEGATIVE (NEGATIVE); PROTEIN,URINE NEGATIVE (NEGATIVE); UROBILINOGEN,URINE 0.2 (NORMAL) E.U./dL (NORMAL)
[2020-12-21 18:05] LABS: CLARITY,URINE HAZY (CLEAR)
[2020-12-21 18:18] LABS: BACTERIA,URINE Moderate /HPF (None Seen); RBC,URINE 0-5 /HPF (0-5); SQUAMOUS EPITHELIAL CELL,UR FEW Squamous (<= Few); WBC,URINE >25 /HPF (0-5)
== END 2020-12-21 23:59 | disposition home or self-care (01) ==
LOC: LAB.N 11:40
PROVIDERS: ATTEND Nurse Practitioner
DX: N39.0 Urinary tract infection, site not specified (principal)
CPT/HCPCS: 81001; 87086; 87181

== ENCOUNTER 2021-01-10 10:42 | Outpatient (CLI) | payer MEDICAID | END 2021-01-10 23:59 | disposition home or self-care (01) | LOC: LAB.N 10:42 | PROVIDERS: ATTEND Family Medicine | DX: R39.9 Unspecified symptoms and signs involving the genitourinary system (principal) | CPT/HCPCS: 87086; 87181 ==